=== PATIENT | male | born 1950 | race African-American/Black ===

== ENCOUNTER 2024-06-15 07:09 | Inpatient (IN) | payer MEDICARE ==
[2024-06-14 10:03] LABS: BASOPHILS # (AUTO) 0.1 (0.0-0.1); BASOPHILS % 1.2 % (0.0-1.0); EOSINOPHILS # (AUTO) 0.4 (0.0-0.4); EOSINOPHILS % 6.4 % (0.0-6.0); HEMATOCRIT 48.2 % (38.2-49.6); HEMOGLOBIN 14.6 g/dL (14.0-18.0); LYMPHOCYTES # (AUTO) 3.4 (1.0-3.2); LYMPHOCYTES % 50.4 % (18.0-39.1); MEAN CORPUSCULAR HEMOGLOBIN 28.3 pg (28-32); MEAN CORPUSCULAR HGB CONC 30.3 g/dL (31-35); MEAN CORPUSCULAR VOLUME 93.4 fL (81-99); MONOCYTES # (AUTO) 0.8 (0.2-0.8); NEUTROPHILS % 29.4 % (38.7-80.0); PLATELET COUNT 148 x10e3/uL (140-360); RED BLOOD COUNT 5.16 x10e6/uL (4.3-5.7); RED CELL DISTRIBUTION WIDTH 15.1 % (11.7-14.4); WHITE BLOOD COUNT 6.69 x10e3/uL (4.8-10.8)
[2024-06-14 10:38] LABS: CREATININE, SERUM 1.09 mg/dL (0.72-1.25)
[~2024-06-15] VITALS: Ht 167.6 cm; Wt 78.5 kg
[2024-06-15] VITALS (8 sets, daily range): BP systolic 113–128; BP diastolic 75–84; PULSE 69–97; RESP 16–20; TEMP 97.5–99; O2SAT 97–100
[2024-06-15] MEDS: SODIUM CHLORIDE 0.9% 1000ML 1,000 ML ONE (06:53)
[2024-06-15] MEDS: GENTAMICIN 80MG/NS 100 ML 200 ML IV ONE (06:54)
[2024-06-15] MEDS: PIPERACILLIN/TAZOBACTAM 3.375 GM VIAL ONE (06:54)
[~2024-06-15 07:09] MED LIST: FINASTERIDE5 MG PO; FLOMAX0.4 MG PO; PANTOPRAZOLE SO40 MG PO; TRELEGY ELLIPT1 EACH
[2024-06-15] MEDS ORDERED: PROPOFOL IV EMULSION 10 MG/ML 20 ML VIAL ONE (08:43)
[2024-06-15] MEDS ORDERED: FENTANYL CITRATE/PF 100MCG/2 ML INJ ONE ×2 (08:43→10:56)
[2024-06-15] MEDS ORDERED: LIDOCAINE HCL 2% LOCAL INJ 5 ML SDV VIAL INJ ONE (08:43)
[2024-06-15] MEDS ORDERED: DEXAMETHASONE SOD PHOS INJ 4 MG/ML SDV ONE (09:57)
[2024-06-15] MEDS ORDERED: ONDANSETRON HCL INJ 2MG/ML 2ML 2 MG/ML VIAL ONE (09:57)
[2024-06-15] MEDS ORDERED: EPHEDRINE SULFATE INJ 50 MG/ML VIAL ONE (09:57)
[2024-06-15] MEDS ORDERED: KETOROLAC TROMETHAMINE 30 MG/ML VIAL ONE (11:07)
[2024-06-15] MEDS ORDERED: ACETAMINOPHEN/CODEINE 300MG - 30MG TAB PO PRN (13:15)
[2024-06-15] MEDS ORDERED: PHENAZOPYRIDINE HCL 100 MG TAB PO PRN (13:15)
[2024-06-15] MEDS ORDERED: DIPHENHYDRAMINE HCL 25 MG CAP PO PRN (13:15)
[2024-06-15] MEDS ORDERED: ONDANSETRON HCL INJ 2MG/ML 2ML 2 MG/ML VIAL IV PRN (13:15)
[2024-06-15 13:57] LABS: BASOPHILS % 0.4 % (0.0-1.0); EOSINOPHILS % 0.2 % (0.0-6.0); HEMATOCRIT 48.9 % (38.2-49.6); HEMOGLOBIN 14.7 g/dL (14.0-18.0); LYMPHOCYTES % 10.5 % (18.0-39.1); MEAN CORPUSCULAR HEMOGLOBIN 28.7 pg (28-32); MEAN CORPUSCULAR HGB CONC 30.1 g/dL (31-35); MEAN CORPUSCULAR VOLUME 95.5 fL (81-99); MONOCYTES # (AUTO) 0.1 (0.2-0.8); MONOCYTES % 1.2 % (4.4-11.3); NEUTROPHILS # (AUTO) 8.2 (2.1-6.9); NEUTROPHILS % 87.4 % (38.7-80.0); PLATELET COUNT 132 x10e3/uL (140-360); RED BLOOD COUNT 5.12 x10e6/uL (4.3-5.7); RED CELL DISTRIBUTION WIDTH 15.4 % (11.7-14.4); WHITE BLOOD COUNT 9.36 x10e3/uL (4.8-10.8)
[2024-06-15 14:19] LABS: CREATININE, SERUM 1.03 mg/dL (0.72-1.25); MAGNESIUM 1.7 MG/DL (1.3-2.1)
[2024-06-15] MEDS: SODIUM CHLORIDE 0.9% 1000ML 1,000 ML IV SCH (15:18)
[2024-06-15] MEDS: CALCIUM CARBONATE 500 MG CHEWABLE TABS PO PRN (16:38)
[2024-06-15] MEDS: SENNA-S TABLET PO SCH (17:16)
[2024-06-15] MEDS ORDERED: HYDRALAZINE HCL 20 MG/ML VIAL IV PRN (18:45)
[2024-06-15] MEDS ORDERED: ALBUTEROL/IPRATROPIUM 3 ML NEB NEB PRN (18:45)
[2024-06-15] MEDS: ACETAMINOPHEN 1000 MG/100 ML IV PRN (20:30)
[2024-06-16] VITALS (8 sets, daily range): BP systolic 112–129; BP diastolic 67–74; PULSE 63–86; RESP 16–20; TEMP 98–98.6; O2SAT 97–100
[2024-06-16 05:02] LABS: BASOPHILS % 0.4 % (0.0-1.0); EOSINOPHILS # (AUTO) 0.1 (0.0-0.4); EOSINOPHILS % 0.5 % (0.0-6.0); HEMOGLOBIN 13.6 g/dL (14.0-18.0); LYMPHOCYTES # (AUTO) 2.8 (1.0-3.2); LYMPHOCYTES % 25.3 % (18.0-39.1); MEAN CORPUSCULAR HEMOGLOBIN 28.6 pg (28-32); MEAN CORPUSCULAR HGB CONC 28.9 g/dL (31-35); MEAN CORPUSCULAR VOLUME 98.7 fL (81-99); MONOCYTES # (AUTO) 0.9 (0.2-0.8); MONOCYTES % 8.2 % (4.4-11.3); NEUTROPHILS # (AUTO) 7.2 (2.1-6.9); NEUTROPHILS % 65.4 % (38.7-80.0); RED BLOOD COUNT 4.76 x10e6/uL (4.3-5.7); RED CELL DISTRIBUTION WIDTH 15.7 % (11.7-14.4); WHITE BLOOD COUNT 10.97 x10e3/uL (4.8-10.8)
[2024-06-16 05:03] LABS: PLATELET COUNT 121 x10e3/uL (140-360)
[2024-06-16 05:18] LABS: ANION GAP 14.3 mmol/L (8-16); CALCIUM 8.1 mg/dL (8.4-10.2); CREATININE, SERUM 1.1 mg/dL (0.72-1.25); POTASSIUM 4.3 mmol/L (3.5-5.1)
[2024-06-16] MEDS: PANTOPRAZOLE SOD 40 MG TABEC PO SCH (06:15)
[2024-06-16] MEDS: TAMSULOSIN HCL 0.4 MG CAP PO SCH (08:21)
[2024-06-16] MEDS: FINASTERIDE 5 MG TAB PO SCH (08:21)
[2024-06-17] VITALS (9 sets, daily range): BP systolic 120–147; BP diastolic 73–85; PULSE 74–92; RESP 16–20; TEMP 98.2–99.3; O2SAT 95–100
[2024-06-17 07:01] LABS: BASOPHILS # (AUTO) 0.1 (0.0-0.1); BASOPHILS % 0.5 % (0.0-1.0); EOSINOPHILS # (AUTO) 0.3 (0.0-0.4); EOSINOPHILS % 2.4 % (0.0-6.0); HEMATOCRIT 41.7 % (38.2-49.6); LYMPHOCYTES % 28.8 % (18.0-39.1); MEAN CORPUSCULAR HEMOGLOBIN 28.5 pg (28-32); MEAN CORPUSCULAR HGB CONC 31.2 g/dL (31-35); MEAN CORPUSCULAR VOLUME 91.4 fL (81-99); MONOCYTES # (AUTO) 0.9 (0.2-0.8); MONOCYTES % 8.5 % (4.4-11.3); NEUTROPHILS # (AUTO) 6.2 (2.1-6.9); NEUTROPHILS % 59.5 % (38.7-80.0); PLATELET COUNT 139 x10e3/uL (140-360); RED BLOOD COUNT 4.56 x10e6/uL (4.3-5.7); WHITE BLOOD COUNT 10.44 x10e3/uL (4.8-10.8)
[2024-06-17 07:26] LABS: ANION GAP 11.8 mmol/L (8-16); CALCIUM 8.6 mg/dL (8.4-10.2); CREATININE, SERUM 0.95 mg/dL (0.72-1.25); POTASSIUM 3.8 mmol/L (3.5-5.1)
[2024-06-17] MEDS ORDERED: CHOLESTYRAMINE 4 GM PACKET PO PRN (10:30)
[2024-06-17] MEDS: ACETAMINOPHEN 325 MG TAB ONE (22:03)
[2024-06-17] MEDS: ACETAMINOPHEN 325 MG TAB PO PRN (22:04)
[2024-06-18 03:39] VITALS: BP 109/66; PULSE 68; RESP 20; TEMP 97.6; O2SAT 98
[2024-06-18 05:25] LABS: BASOPHILS # (AUTO) 0.1 (0.0-0.1); BASOPHILS % 0.7 % (0.0-1.0); EOSINOPHILS # (AUTO) 0.3 (0.0-0.4); EOSINOPHILS % 3.4 % (0.0-6.0); HEMATOCRIT 39.2 % (38.2-49.6); HEMOGLOBIN 12.7 g/dL (14.0-18.0); LYMPHOCYTES # (AUTO) 3.2 (1.0-3.2); LYMPHOCYTES % 37.2 % (18.0-39.1); MEAN CORPUSCULAR HEMOGLOBIN 28.5 pg (28-32); MEAN CORPUSCULAR HGB CONC 32.4 g/dL (31-35); MEAN CORPUSCULAR VOLUME 88.1 fL (81-99); MONOCYTES % 12.2 % (4.4-11.3); NEUTROPHILS # (AUTO) 3.9 (2.1-6.9); NEUTROPHILS % 46.3 % (38.7-80.0); PLATELET COUNT 125 x10e3/uL (140-360); RED BLOOD COUNT 4.45 x10e6/uL (4.3-5.7)
[2024-06-18 05:56] LABS: ANION GAP 11.6 mmol/L (8-16); CALCIUM 8.5 mg/dL (8.4-10.2); CREATININE, SERUM 0.88 mg/dL (0.72-1.25); POTASSIUM 3.6 mmol/L (3.5-5.1)
[2024-06-18 07:55] VITALS: BP 127/73; PULSE 73; RESP 18; TEMP 97.2; O2SAT 99
[2024-06-18 07:57] VITALS: BP 127/73; PULSE 73; RESP 18; TEMP 97.2; O2SAT 99
[2024-06-18 08:50] VITALS: PULSE 90; RESP 18; O2SAT 98
[2024-06-18 12:00] VITALS: BP 135/79; PULSE 79; RESP 18; TEMP 98.5; O2SAT 98
[2024-06-18 16:31] VITALS: BP 121/66; PULSE 82; RESP 18; TEMP 98.3; O2SAT 98
== END 2024-06-18 18:29 | disposition home or self-care (01) | DRG 713 ==
LOC: OR 07:09 → PACU V 13:17 → MED/SURG 13:58
PROVIDERS: ADMIT Internal Medicine; ATTEND Internal Medicine
PROC: 0VB03ZX Excision of Prostate, Percutaneous Approach, Diagnostic (ICD-10-PCS; 2024-06-15)
PROC: 0VB08ZZ Excision of Prostate, Via Natural or Artificial Opening Endoscopic (ICD-10-PCS; principal; 2024-06-15 09:40)
PROC: BT141ZZ Fluoroscopy of Kidneys, Ureters and Bladder using Low Osmolar Contrast (ICD-10-PCS; 2024-06-15 09:40)
DX: C61 Malignant neoplasm of prostate (principal); D68.9 Coagulation defect, unspecified; N13.8 Other obstructive and reflux uropathy; N40.3 Nodular prostate with lower urinary tract symptoms; N41.9 Inflammatory disease of prostate, unspecified; R31.29 Other microscopic hematuria; N32.3 Diverticulum of bladder; N32.89 Other specified disorders of bladder; R97.20 Elevated prostate specific antigen [PSA]; N30.91 Cystitis, unspecified with hematuria; R31.0 Gross hematuria; I10 Essential (primary) hypertension; E78.5 Hyperlipidemia, unspecified; Z87.891 Personal history of nicotine dependence; Z79.899 Other long term (current) drug therapy
CPT/HCPCS: 36415; 71046; 74420; 76872; 76998; 80048; 83735; 85025; 88305; 88342; 93005; 94799; C1758; J1100; J1580; J1885; J2003; J2405; J2470; J2543; J7030